=== PATIENT | female | born 1980 | race African-American/Black ===

== ENCOUNTER 2017-07-26 15:28 | Emergency (ER) | payer BC ==
[~2017-07-26] VITALS: Ht 154.9 cm; Wt 88.6 kg
[2017-07-26] MEDS ORDERED: LEVOFLOXACIN 500MG TABLET PO ONE (22:00)
[2017-07-26 22:04] LABS: KETONES URINE NEGATIVE (NEGATIVE); LEUKOCYTE ESTERASE URINE 3+ (NEGATIVE); NITRITE URINE POSITIVE (NEGATIVE); OCCULT BLOOD URINE 2+ (NEGATIVE); PROTEIN URINE 1+ (NEGATIVE); SPECIFIC GRAVITY URINE 1.024 (1.005-1.030); UROBILINOGEN URINE 0.2 E.U./dL (0.2-1.0)
[2017-07-26 22:05] LABS: CLARITY URINE CLOUDY (CLEAR); COLOR URINE YELLOW (YELLOW)
[2017-07-26 23:18] VITALS: BP 122/82
== END 2017-07-27 00:02 | disposition home or self-care (01) ==
LOC: ER 16:47
DX: N39.0 Urinary tract infection, site not specified (principal)
CPT/HCPCS: 81003; 87077; 87086; 87186; 99284